=== PATIENT | female | born 1950 | race Caucasian/White ===

== ENCOUNTER → 2020-08-29 17:20 | Outpatient (CLI) | payer MEDICARE, SELFPAY ==
--- NOTE | ~2020-08-29 | MM_ITS ---
EXAMINATION: MM screening marjan BI w lisa HISTORY: Screening TECHNIQUE: Craniocaudal and mediolateral oblique 3-D tomosynthesis images were obtained and synthetic 2-D images were generated. CAD analysis was submitted and interpreted. COMPARISON: 08/04/2018 BREAST PARENCHYMAL COMPOSITION: There are scattered areas of fibroglandular density. FINDINGS: There is no evidence of suspicious mass, calcification, or architectural distortion to sugg est malignancy in either breast. There has been no suspicious interval change. IMPRESSION: 1. No mammographic evidence of malignancy. 2. Recommend routine screening mammography in one year. BI-RADS Category 1: Negative Reviewed, dictated and finalized at location A.
== END ==
PROVIDERS: PCP Family Medicine; Visit Provider Physician Assistant
DX: Z12.31 Encounter for screening mammogram for malignant neoplasm of breast (principal)
CPT/HCPCS: 77063; 77067

== ENCOUNTER → 2021-12-11 11:15 | Outpatient (CLI) | payer MEDICARE, SELFPAY ==
--- NOTE | ~2021-12-11 | XR_ITS ---
EXAMINATION: XR lumbar spine min 4V DATE: 12/11/2021 11:43 INDICATION: Low back pain TECHNIQUE: Anteroposterior and lateral in neutral, flexion and extension views of the lumbar spine, a nd cone-down lateral view of the lumbosacral junction were obtained. COMPARISON: None. FINDINGS: There are 20 degrees of lumbar dextrocurvature. There are 4 mm of anterolisthesis of L3 on L4 and 6 mm of anterolisthesis of L4 on L5. No laxity is present with flexion or extension. There are moderate loss of intervertebral disc space height at L4-5 and L5-S1. The vertebral body heights are maintained. There is no fracture. There is severe facet joint osteoarthritis of the lower lumbar spin e. Surgical clips in the right upper quadrant are likely from prior cholecystectomy. There is calcifi ed atherosclerosis of the aorta and many of the other arteries. IMPRESSION: 1. Moderate lumbar spondylosis without acute findings. Reviewed, dictated and finalized at location B.
--- NOTE | ~2021-12-11 | XR_ITS ---
EXAMINATION: XR hip BI wo pelvis DATE: 12/11/2021 11:43 INDICATION: Hip pain. TECHNIQUE: 2 views of right hip and 2 views of left hip were obtained. COMPARISON: None. FINDINGS: Bone alignment is normal. No fracture. There is severe right hip osteoarthritis and moderat e left hip osteoarthritis. IMPRESSION: 1. Severe right hip osteoarthritis and moderate left hip osteoarthritis. Reviewed, dictated and finalized at location A.
== END ==
PROVIDERS: PCP Family Medicine; Visit Provider Physician Assistant
DX: M47.896 Other spondylosis, lumbar region (principal); M16.0 Bilateral primary osteoarthritis of hip
CPT/HCPCS: 72110; 73521

== ENCOUNTER → 2021-12-28 06:52 | Outpatient (CLI) | payer MEDICARE, SELFPAY ==
--- NOTE | ~2021-12-28 | MR_ITS ---
EXAMINATION: MR lumbar spine wo con DATE: 12/28/2021 07:27 INDICATION: Lumbar spondylosis TECHNIQUE: Magnetic resonance imaging (MRI) of the lumbar spine was performed without intravenous con trast. Sequences included sagittal T2-weighted FSE, sagittal T2-weighted FS FSE, sagittal T1-weighted FSE, and axial T2-weighted FSE. COMPARISON: None FINDINGS: 12 degrees dextroscoliosis measured between T11 and L4. 102 mm anterolisthesis L3 on L4. 5 mm anterol isthesis L4 on L5. Vertebral body heights are normal. Normal marrow signal. Mild disc height loss at L4-5 and L5-S1. The conus medullaris terminates at L1-L2. There is normal signal in the caudal spina l cord. Paravertebral soft tissues are unremarkable. The following disc levels are specifically discu ssed: T12-L1: Disc is minimally bulging. There is moderate bilateral facet joint osteoarthritis. There is n o neural foraminal stenosis. There is no central canal stenosis. L1-L2: Disc is mildly bulging. There is moderate bilateral facet joint osteoarthritis. There is no ne ural foraminal stenosis. There is no central canal stenosis. L2-L3: Disc is mildly bulging. There is moderate bilateral facet joint osteoarthritis. There is mild bilateral neural foraminal stenosis. There is minimal central canal stenosis. L3-L4: Disc is mildly bulging with annular fissure. There is hypertrophy of the ligamentum flavum. Th ere is severe bilateral facet joint osteoarthritis. There is mild bilateral neural foraminal stenosis . There is mild to moderate central canal stenosis with mild left and right lateral recesses. L4-L5: Moderate diffuse disc bulge with annular fissure. There is hypertrophy of the ligamentum flavu m. There is severe bilateral facet joint osteoarthritis. There is moderate bilateral neural foraminal stenosis. There is severe central canal stenosis with effacement of the CSF signal surrounding the c entrally clustered nerve roots. There is also narrowing of the lateral recesses, severe in the left a nd moderate on the right. L5-S1: Moderate diffuse disc bulge. There is minimal bilateral, right greater than left facet joint o steoarthritis. There is mild left and moderate right neural foraminal stenosis. There is mild central canal stenosis. There is also narrowing of the lateral recesses, mild on the left and moderate on th e right. IMPRESSION: 1. Mild lumbar spondylosis with multilevel ligamentum flavum hypertrophy and severe bilateral facet o steoarthritis which contributes to severe central canal stenosis at L4-L5 and multilevel mild to mode rate bilateral neural foraminal stenosis in the mid to lower lumbar spine. Reviewed, dictated and finalized at location A. T PROMOTER IMPRESSION: 1. Mild lumbar spondylosis with multilevel ligamentum flavum hypertrophy and se ta bilateral facet osteoarthritis which contributes to severe central canal s tenosis at L4-L5 and multilevel mild to moderate bilateral neural foraminal lazarus nosis in the mid to lower lumbar spine.
== END ==
PROVIDERS: PCP Physician Assistant; Visit Provider Physician Assistant
DX: M47.816 Spondylosis without myelopathy or radiculopathy, lumbar region (principal)
CPT/HCPCS: 72148

== ENCOUNTER 2022-02-19 10:03 | Outpatient (CLI) | payer MEDICARE, SELFPAY ==
--- NOTE | ~2022-02-19 | US_ITS ---
EXAMINATION: US carotid duplex BI DATE: 02/19/2022 11:04 INDICATION: Carotid stenosis TECHNIQUE: Grayscale, color Doppler, and pulsed Doppler images of the cervical carotid arteries were obtained. The degree of vessel stenosis is placed in one of the following categories: normal, <50%, 5 0-69%, >=70% but less than near-occlusion, near-occlusion, or total occlusion. Note that percent sten osis relative to normal distal artery lumen diameter is indirectly measured from velocity measurement s as described by Juan M, et al. Radiology 2003; [id number]. COMPARISON: None. FINDINGS: RIGHT: The right common carotid artery (CCA) peak systolic velocity (PSV) is 113 cm/s. The right internal ca rotid artery (ICA) PSV is 89 cm/s. The right ICA end-diastolic velocity (EDV) is 27 cm/s. The right I CA/CCA PSV ratio is 125. Grayscale and color Doppler images yield an estimate of <50% diameter reduct ion from plaque in the ICA. The external carotid artery (ECA) PSV is 125 cm/s. There is antegrade jabier w in the right vertebral artery. LEFT: The left CCA PSV is 102 cm/s. The left ICA PSV is 83 cm/s. The left ICA EDV is 26 cm/s. The left ICA/ CCA PSV ratio is 0.8. Grayscale and color Doppler images yield an estimate of <50% diameter reduction from plaque in the ICA. The ECA PSV is 113 cm/s. There is antegrade flow in the left vertebral arter y. IMPRESSION: 1. <50% stenosis in the right internal carotid artery. 2. <50% stenosis in the left internal carotid artery. Reviewed, dictated and finalized at location A. NEERING MANAGER
== END 2022-02-19 10:04 | disposition home or self-care (01) ==
PROVIDERS: PCP Physician Assistant; Visit Provider Physician Assistant
DX: I65.23 Occlusion and stenosis of bilateral carotid arteries (principal)
CPT/HCPCS: 93880

== ENCOUNTER → 2022-05-14 13:06 | Outpatient (CLI) | payer MEDICARE, SELFPAY ==
--- NOTE | ~2022-05-14 | MM_ITS ---
EXAMINATION: MM screening marjan BI w lisa HISTORY: Screening TECHNIQUE: Craniocaudal and mediolateral oblique 3-D tomosynthesis images were obtained and synthetic 2-D images were generated. CAD analysis was submitted and interpreted. COMPARISON: Comparison to multiple prior studies sequentially, with oldest reviewed study dated 08/04. BREAST PARENCHYMAL COMPOSITION: Breast composed of scattered areas of fibroglandular density FINDINGS: There is no evidence of suspicious mass, calcification, or architectural distortion to sugg est malignancy in either breast. There has been no suspicious interval change. IMPRESSION: 1. No mammographic evidence of malignancy. 2. Recommend routine screening mammography in one year. BI-RADS Category 1: Negative Reviewed, dictated and finalized at location A.
== END ==
PROVIDERS: PCP Physician Assistant; Visit Provider Physician Assistant
DX: Z12.31 Encounter for screening mammogram for malignant neoplasm of breast (principal)
CPT/HCPCS: 77063; 77067

== ENCOUNTER 2023-12-31 07:28 | Outpatient (CLI) | payer MEDICARE, SELFPAY ==
--- NOTE | ~2023-12-31 | MM_ITS ---
EXAMINATION: MM screening marjan BI w lisa HISTORY: Screening mammogram TECHNIQUE: Craniocaudal and mediolateral oblique 3-D tomosynthesis images were obtained and synthetic 2-D images were generated. CAD analysis was submitted and interpreted. COMPARISON: 05/14/2022, 08/29/2020, 08/04/2018 BREAST PARENCHYMAL COMPOSITION:Not Dense. The breasts are almost entirely fatty FINDINGS: No suspicious mass, calcification, or architectural distortion are identified in either dmitry ast to suggest malignancy. There has been no suspicious interval change. IMPRESSION: No mammographic evidence of malignancy. Recommend routine screening mammography in one year. BI-RADS Category 1: Negative Reviewed, dictated and finalized at location . [employer]
== END 2023-12-31 07:29 | disposition home or self-care (01) ==
LOC: MICIMG 07:29
PROVIDERS: PCP Family Medicine; Visit Provider Family Medicine
DX: Z12.31 Encounter for screening mammogram for malignant neoplasm of breast (principal)
CPT/HCPCS: 77063; 77067